=== PATIENT | female | born 1995 | race African-American/Black ===

== ENCOUNTER 2019-12-02 06:48 | Day surgery (SDC) | payer OTHER ==
[~2019-12-02] VITALS: Ht 157.5 cm; Wt 77.1 kg
[~2019-12-02 06:48] MED LIST: HYDROXYZINE HCL10 M2 PO; IBUPROFEN 800800 M1 PO; MINIPRESS2 MG PO; SERTRALINE HCL100 MG PO; TRAZODONE HCL50 MG PO
[2019-12-02 07:17] VITALS: BP 137/73
[2019-12-02] MEDS ORDERED: XARELTO10 MG PO (10:45)
[2019-12-02] MEDS ORDERED: CEFDINIR300 MG PO (10:46)
[2019-12-02 11:07] VITALS: BP 137/73
== END 2019-12-02 11:40 | disposition home or self-care (01) ==
LOC: OR 06:48 → TBA 06:59 → OR 08:47
DX: M21.42 Flat foot [pes planus] (acquired), left foot (principal); F32.9 Major depressive disorder, single episode, unspecified; F41.9 Anxiety disorder, unspecified; Z98.890 Other specified postprocedural states; Z79.899 Other long term (current) drug therapy
CPT/HCPCS: 50010; 50101; 50386; 50951; 56526; 57091; 57180; 5720; 5721; 5722; 5723; 5724; 57458; 62110; 62900; 64039; 70005